=== PATIENT | female | born 1985 | race Caucasian/White ===

== ENCOUNTER 2018-10-04 18:38 | Emergency (ER) | payer SELFPAY ==
[~2018-10-04] VITALS: Ht 167.6 cm; Wt 88.9 kg
[2018-10-04 18:55] VITALS: Ht 167.6 cm; Wt 88.9 kg
[2018-10-04 20:56] VITALS: BP 117/78
== END 2018-10-04 20:56 | disposition home or self-care (01) ==
LOC: ED 18:38
DX: S93.402A Sprain of unspecified ligament of left ankle, initial encounter (principal); X50.1XXA Overexertion from prolonged static or awkward postures, initial encounter; Y93.89 Activity, other specified; Y92.89 Other specified places as the place of occurrence of the external cause; Y99.8 Other external cause status